=== PATIENT | female | born 1975 | race Caucasian/White ===

== ENCOUNTER → 2018-05-08 11:07 | Outpatient (CLI) | payer OTHER | END | disposition home or self-care (01) | LOC: D.RAD 11:07 | DX: M47.817 Spondylosis without myelopathy or radiculopathy, lumbosacral region (principal); M47.27 Other spondylosis with radiculopathy, lumbosacral region; M47.9 Spondylosis, unspecified; M47.819 Spondylosis without myelopathy or radiculopathy, site unspecified; G89.4 Chronic pain syndrome; Z79.891 Long term (current) use of opiate analgesic; Z79.899 Other long term (current) drug therapy ==